=== PATIENT | female | born 1990 | race Hispanic/Latino ===

== ENCOUNTER 2024-12-12 03:09 | Emergency (ER) | payer BC ==
[~2024-12-12] VITALS: Ht 149.9 cm; Wt 52.6 kg
[~2024-12-12 03:09] MED LIST: PREN1TAB80 PO
[2024-12-12 03:10] VITALS: TEMP 97.6
--- NOTE | 2024-12-12 03:11 | NUR ---
UA CUP PROVIDED
--- NOTE | 2024-12-12 03:27 | ERN ---
General Chief Complaint: Pelvic Pain Stated Complaint: LEFT LOWER ABD/PELVIC PAIN Time Seen by MD: 03:12 History of Present Illness Initial Comments 34-year-old healthy female comes in with a excruciating pain in her left lower quadrant that started about an hour ago. The pain is intense and it does go up and down with a periodicity of a minute or two. It starts in the left lower quadrant and migrates around to her left flank and left back. There are no other associated symptoms no fevers no chills no change in urination or defecation. She has never had this pain before. Allergies: Coded Allergies: No Known Drug Allergies (Verified Allergy, 11/09/12) Home Meds Reported Medications Vits W-Ca,Fe,FA(<1Mg) ( Vitamins) 1 Each Tablet, 1 EACH PO DAILY, TAB 04/30/14 Past Medical History Past Medical History: No Pertinent History Past Surgical History: None Female( History) LMP: Nov 27, 2024 Constitutional: (-) chills, (-) diaphoresis, (-) fever, (-) malaise, (-) weakness, (-) other documentation EENTM: (-) eye pain, (-) blurred vision, (-) tearing, (-) double vision, (-) ear pain, (-) ear discharge, (-) nose pain, (-) nose congestion, (-) throat pain, (-) Throat swelling, (-) mouth pain, (-) tooth pain, (-) mouth swelling, (-) other documentation Respiratory: (-) cough, (-) orthopnea, (-) short of breath, (-) stridor, (-) wheezing, (-) other documentation Cardiovascular: (-) chest pain, (-) edema, (-) palpitations, (-) syncope, (-) dyspnea on exertion, (-) other documentation Gastrointestinal/Abdominal: (-) nausea, (-) vomiting, (-) diarrhea, (-) abdominal pain, (-) abdominal distention, (-) constipation, (-) rectal bleeding, (-) dark stool/melena, (-) other documentation Genitourinary: (-) vaginal discharge, (-) vaginal bleeding, (-) dysuria, (-) frequency, (-) hematuria, (-) pain, (-) other documentation Musculoskeletal: (-) Neck pain, (-) back pain, (-) Flank Pain, (-) joint pain, (-) joint swelling, (-) muscle pain, (-) muscle stiffness, (-) gout, (-) other documentation Physical Exam General Appearance: (+) moderate distress Orientation: (+) alert, (+) oriented x 3 Head/Face Trauma: No Eye: bilateral eye normal inspection, bilateral eye PERRL, bilateral eye EOMI Ear, Nose, Throat: (+) hearing grossly normal, (+) normal ENT inspection, (+) moist mucous membraine Neck: (+) normal inspection, (+) supple, (+) full range of motion Respiratory: (+) chest non-tender, (+) lungs clear Heart: (+) regular, (+) no gallop Vascular: (+) no edema, (+) normal peripheral pulse Gastrointestinal: (+) soft, (+) bowel sound present, (+) tender Results Laboratory and Microbiology Lab and Micro Result Laboratory Tests Test 12/12/24 03:43 White Blood Count 10.4 K/uL (4.8-10.8) Red Blood Count 4.47 MIL/uL (4.00-5.50) Hemoglobin 13.0 g/dL (12.0-16.0) Hematocrit 38.6 % (36-48) Mean Corpuscular Volume 86.4 fL (79-99) Mean Corpuscular Hemoglobin 29.1 pg (27.0-33.0) Mean Corpuscular Hemoglobin Concent 33.7 g/dL (32.0-36.0) Red Cell Distribution Width 12.9 % (11.0-15.5) Platelet Count 430 K/uL (130-400) H Mean Platelet Volume 11.3 fL (7.5-10.5) H Immature Granulocyte % (Auto) 0.2 % (0-1) Neutrophils (%) (Auto) 40.5 % (40.0-77.0) Lymphocytes (%) (Auto) 50.7 % (21.0-51.0) Monocytes (%) (Auto) 6.0 % (3.0-13.0) Eosinophils (%) (Auto) 1.9 % (0.0-8.0) Basophils (%) (Auto) 0.7 % (0.0-5.0) Neutrophils # (Auto) 4.2 K/uL (1.8-7.7) Lymphocytes # (Auto) 5.3 K/uL (1.0-4.8) H Monocytes # (Auto) 0.6 K/uL (0.1-1.0) Eosinophils # (Auto) 0.20 K/uL (0.00-0.70) Basophils # (Auto) 0.07 K/uL (0.00-0.20) Absolute Immature Granulocyte (auto 0.02 K/uL (0-1) Nucleated Red Blood Cells 0.0 % (0.0-0.19) Urine Color LIGHT-YELLOW (YELLOW) Urine Appearance CLOUDY (CLEAR) H Urine pH 6.0 (5.0-8.0) Urine Specific [place] 1.011 (1.001-1.031) Urine Protein NEGATIVE mg/dL (NEGATIVE) Urine Glucose (UA) NEGATIVE mg/dL (NEGATIVE) Urine Ketones NEGATIVE mg/dL (NEGATIVE) Urine Occult Blood NEGATIVE (NEGATIVE) Urine Nitrate 2+ (NEGATIVE) H Urine Bilirubin NEGATIVE mg/dL (NEGATIVE) Urine Urobilinogen 0.2 mg/dL (0.2-1.0) Urine Leukocyte Esterase 500 Stevie/uL (NEGATIVE) H Urine RBC 2-5 /HPF (0-1) H Urine WBC 11-25 /HPF (0-1) H Urine Squamous Epithelial Cells FEW /HPF (0-2) Urine Bacteria MANY /HPF (None Seen) Urine HCG, Qualitative NEGATIVE (NEGATIVE) Sodium Level 136 mmol/L (136-145) Potassium Level 3.7 mmol/L (3.5-5.1) Chloride Level 102 mmol/L (101-111) Carbon Dioxide Level 27 mmol/L (21-32) Blood Urea Nitrogen 14 mg/dL (7-18) Creatinine 0.6 mg/dL (0.5-1.0) Glomerular Filtration Rate Calc 121 mL/min (>90) Random Glucose 100 mg/dL (70-105) Total Calcium 8.5 mg/dL (8.5-10.1) Total Bilirubin 0.2 mg/dL (0.2-1.0) Aspartate Amino Transf (AST/SGOT) 10 U/L (10-37) Alanine Aminotransferase (ALT/SGPT) 20 U/L (12-78) Alkaline Phosphatase 107 U/L (50-136) Total Protein 7.6 g/dL (6.0-8.3) Albumin 4.0 g/dL (3.5-5.0) MDM MDM: Differential diagnosis: UTI, nephrolithiasis, ectopic , muscle spasm, diverticulitis Rationale: Tests considered and ordered secondary to shared decision making include: Previous outside records reviewed: Old ER visits. Risk of complication and/or morbidity or mortality of patient management: None Medications-Per medication reconciliation Need for hospitalization: Patient does meet criteria for hospitalization. Need for emergency major/minor surgery: No There are no social concerns with this patient. Prescription drug management Prescriptions will include symptomatic care Patient's prior external medical records from other ER visits were reviewed by me as indicated. Prior testing and results from previous visits were reviewed. Prior tests were taken into account with medical decision making and resource utilization, independent historian/historians were used to obtain complete medical history. I independently interpreted the test that were performed, results were reviewed by me and considered findings on radiology if ordered. Patient has a urinary tract infection. She is nitrite positive esterase positive in her urine. CT scan shows thickened bladder wall but no nephrolithiasis no hydronephrosis. Laboratory analysis shows a normal CBC. Chemistry panel likewise normal. I will give the patient a bolus of Ancef and discharge her with nitrofurantoin. ED Course Orders Procedure Category Date Status Time Cbc With Differential LAB 12/12/24 In Process 03:27 Comprehensive LAB 12/12/24 Complete Metabolic Panel 03:27 Urinalysis Profile LAB 12/12/24 Complete 03:27 ,Urine Test LAB 12/12/24 Complete 03:27 Ketorolac PHA 12/12/24 Complete Tromethamine 30mg/Ml 03:30 Lactated Ringers PHA 12/12/24 Complete 1000ml (Lactated 03:27 Ct Abdomen/Pelvis CT 12/12/24 Resulted W/Wo Contras 03:27 Culture Urine REYES 12/12/24 In Process 03:58 Iohexol (Omnipaque) PHA 12/12/24 Complete 04:33 Cefazolin Sodium 1 Gm PHA 12/12/24 Complete Vial (Ancef 1 Gm V 04:58 Morphine 2mg Syg PHA 12/12/24 Complete (Morphine 2mg Syg) 05:30 Current Medications Medications (Trade) Dose Ordered Sig/Yan Route PRN Reason Start Time Stop Time Status Last Admin Dose Admin Cefazolin Sodium (ANCEF 1 gm vial) 1 gm ONCE STAT IVP 12/12/24 04:58 12/12/24 05:04 DC 12/12/24 05:08 Iohexol (Omnipaque) 75 ml STK-MED ONCE IV 12/12/24 04:33 12/12/24 04:33 DC Ketorolac Tromethamine (toRADol) 30 mg ONCE ONCE IVP 12/12/24 03:30 12/12/24 03:31 DC 12/12/24 04:06 Lactated Ringer's (Lactated Ringers 1000ml) 1,000 ml BOLUS STAT IV 12/12/24 03:27 12/12/24 03:31 DC 12/12/24 03:52 Morphine Sulfate (morPHINE 2MG SYG) 2 mg ONCE ONCE IVP 12/12/24 05:30 12/12/24 05:31 DC Vital Signs Date Time Temp Pulse Resp B/P (MAP) Pulse Ox O2 Delivery O2 Flow Rate FiO2 12/12/24 03:10 97.5 76 18 136/87 100 Room Air 12/12/24 03:10 97.5 76 18 136/87 100 Room Air* 0 21 DX & DISP Disposition: Discharge Departure Impression: Primary Impression: Urinary tract infection Condition: Stable Scripts Ketorolac Tromethamine (Toradol) 10 Mg Tab 1 TAB PO Q6HPRN PRN for pain for 5 Days, #20 TAB 0 Refills Prov: LOLI VORA MD 12/12/24 Nitrofurantoin Macrocrystal (Nitrofurantoin) 100 Mg Capsule 1 CAP PO BID for 7 Days, #14 CAP 0 Refills Prov: LOLI VORA MD 12/12/24 Additional Instructions: You have a urinary tract infection. I have given you some antibiotics for it and sent a prescription to your pharmacy for a week's treatment. Please drink plenty of fluids during this time it will help flush out a bacteria and toxins from your bladder. Try to drink enough fluids so that your urine runs clear at least once a day. Please return if you find you are unable to eat or drink or keep anything in her stomach. Referrals: NONE (PCP) LOLI VORA MD Dec 12, 2024 03:27
[2024-12-12] MEDS: LACTATED RINGERS 1000ML IV STA (03:52)
[2024-12-12 03:53] LABS: IMMATURE GRANULOCYTE ABSOLUTE 0.02 K/uL (0-1); NUCLEATED RED BLOOD CELLS 0.0 % (0.0-0.19); PLATELET COUNT (AUTO) 430 K/uL (130-400); RED BLOOD CELL COUNT(AUTO) 4.47 MIL/uL (4.00-5.50); RED CELL DISTRIBUTION WIDTH 12.9 % (11.0-15.5); WHITE BLOOD COUNT (AUTO) 10.4 K/uL (4.8-10.8)
[2024-12-12 03:55] LABS: APPEARANCE,URINE CLOUDY (CLEAR); GLUCOSE, URINE (UA) NEGATIVE (NEGATIVE); LEUKOCYTE ESTERASE ,URINE 500 Leu/uL (NEGATIVE); NITRATE,URINE 2+ (NEGATIVE); OCCULT BLOOD,URINE NEGATIVE (NEGATIVE)
[2024-12-12 03:57] LABS: ADD UA MICROSCOPIC YES
[2024-12-12 03:59] LABS: SQUAMOUS EPITHELIAL CELL,UR FEW /HPF (0-2)
[2024-12-12 04:00] LABS: CREATININE 0.6 mg/dL (0.5-1.0); GLOMERULAR FILTR. RATE CALC 121.0 mL/min (>90); GLUCOSE,RANDOM 100.0 mg/dL (70-105); SODIUM SERUM 136.0 mmol/L (136-145); UREA NITROGEN, BLOOD 14.0 mg/dL (7-18)
[2024-12-12 04:01] LABS: HCG,QUALITATIVE URINE NEGATIVE (NEGATIVE)
[2024-12-12 04:05] LABS: ASPARTATE AMINOTRANSFERASE 10.0 U/L (10-37); TOTAL PROTEIN, SERUM 7.6 g/dL (6.0-8.3)
[2024-12-12] MEDS ORDERED: IOHEXOL-350 75 ML VIAL IV ONE (04:33)
--- NOTE | 2024-12-12 05:43 | HMCIMG ---
EXAM: CT Abdomen and Pelvis without and with IV contrast CLINICAL HISTORY: Left lower quadrant abdominal pain. TECHNIQUE: Pre and post contrast thin collimated axial CT images of the abdomen and pelvis were obtained with sagittal and coronal reformatted images also submitted. CT scan is done according to ALARA (As Low As Reasonably Achievable). COMPARISON: None. FINDINGS: Unremarkable visualized lung parenchyma. There is no focal abnormality appreciated within the liver, gallbladder, pancreas, spleen, adrenals, or kidneys. There is no obvious bowel wall thickening. Bowel loops are normal in caliber without evidence of obstruction or ileus. The appendix is normal. Open mild constipation. There is no abnormality within the urinary bladder. Mildly dilated and tortuous left ovarian vein with mild pelvic congestion. 2 cm collapsing cyst with irregular peripheral enhancement in the right ovary with a small amount of free fluid in the cul-de-sac, likely a recently ruptured right ovarian follicle or cyst. Unremarkable uterus and left ovary. Abdominal and pelvic vessels are patent. No lymphadenopathy. No pneumoperitoneum. There is no acute osseous abnormality. Small, uncomplicated fat-containing umbilical hernia. IMPRESSIONS: Mildly dilated and tortuous left ovarian vein with mild pelvic congestion. 2 cm collapsing cyst with irregular peripheral enhancement in the right ovary with a small amount of free fluid in the cul-de-sac, likely a recently ruptured right ovarian follicle or cyst. Recommend ultrasound of the pelvis for further evaluation. A component of mild constipation is present in the colon. /[place]atum
[2024-12-12] MEDS ORDERED: KETO10 PO (05:54)
[2024-12-12] MEDS ORDERED: NITR100C PO (05:54)
[2024-12-12 06:12] VITALS: BP 124/81; PULSE 71; RESP 18; O2SAT 100
== END 2024-12-12 06:19 | disposition home or self-care (01) ==
LOC: EDH 03:09
DX: N39.0 Urinary tract infection, site not specified (principal); Z79.899 Other long term (current) drug therapy
CPT/HCPCS: 99284; 74178; 96365; 96361; 96375; 80053; 85025; 87086 ×2; 87186; 81001; 81025; 36415; J1885; J7120; J0690; Q9967